=== PATIENT | female | born 1970 | race Caucasian/White ===

== ENCOUNTER 2016-07-14 16:16 | Emergency (ER) | payer OTHER ==
--- NOTE | ~2016-07-14 | EKG ---
PATIENT: AVIVA MURO UNIT #: [id number] Ventricular Rate: 74 BPM Atrial Rate: 74 BPM P-R Interval: 122 ms QRS Duration: 82 ms Q-T Interval: 424 ms QTC Calculation(Bezet): 470 ms P [place]: 4 degrees Calculated R [place]: 52 degrees Calculated T [place]: 21 degrees Diagnosis Line: Normal sinus rhythm Diagnosis Line: Normal ECG Diagnosis Line: When compared with ECG of 25-JUL-2013 09:20, Diagnosis Line: No significant change was found Diagnosis Line: Confirmed by ANGEL CHAVEZ MD ([id number]) on Diagnosis Line: 07/15/2016 7:16:25 AM INTERPRETING LOREN HORTON
--- NOTE | ~2016-07-14 | CT71 ---
[facility] A Service of [facility] & [facility] RADIOLOGY TEXT RESULTS PATIENT: AVIVA MURO LOCATION: [facility] : [birth year] UNIT #: [id number] AGE: [address]: Kailash Cardona MD SEX: F ORDER DR: [id number] [facility] [address] [place], [place] [address] [id number] MR#: [id number] Acc #: [id number] NAME: AVIVA MURO : 1970 SEX: F STUDY DATE/TIME: 07/14/2016 16:18 UNIT: [facility] ROOM: STUDY DESCRIPTION: CT Head Wo Contrast Attending Physician: Kailash Cardona M.D. Ordering Physician: Kailash Cardona M.D. Primary Care Physician: Hien Klein MEDICAL IMAGING REPORT This report is preliminary unless electronic signature is present EXAM CT brain without contrast HISTORY Left side face numbness today. TECHNIQUE Axial noncontrast images were obtained from the skull base to the vertex. This CT exam was performed with one or more of the following radiation dose reduction techniques: Automatic exposure control, adjustment of mA and/or kV according to patient size, and iterative reconstruction. FINDINGS Ventricular size and configuration are normal. There is no evidence of acute infarct or hemorrhage. There are no extraaxial fluid collections. No mass lesion or mass effect is seen. There are no skull fractures. IMPRESSION Normal noncontrast head CT. Dictated by... Álvaro Camargo M.D. THIS IS AN ELECTRONICALLY VERIFIED REPORT Álvaro Camargo M.D. at 07/14/2016 10:50 PM DFL/psc TD: 07/14/2016 18:46 JOB #: [id number] MEDICAL IMAGING REPORT [facility] A Service of [facility] & [facility] RADIOLOGY TEXT RESULTS PATIENT: AVIVA MURO LOCATION: [facility] : 66 UNIT #: [id number] AGE: [address]: Kailash Cardona MD SEX: F ORDER DR: Page 1 of 1 COPY
--- NOTE | ~2016-07-14 | CR72 ---
[facility] A Service of [facility] & [facility] RADIOLOGY TEXT RESULTS PATIENT: AVIVA MURO LOCATION: [facility] : [birth year] UNIT #: [id number] AGE: [address]: Kailash Cardona MD SEX: F ORDER DR: [id number] [facility] [address] [place], [place] [address] [id number] MR#: [id number] Acc #: [id number] NAME: AIVVA MURO : 1970 SEX: F STUDY DATE/TIME: 07/14/2016 16:02 UNIT: [facility] ROOM: STUDY DESCRIPTION: CR Chest Single View Portable Attending Physician: Kailash Cardona M.D. Ordering Physician: Kailash Cardona M.D. Primary Care Physician: Hien Klein MEDICAL IMAGING REPORT This report is preliminary unless electronic signature is present EXAM Portable chest HISTORY Numbness face and hands since yesterday. COMPARISON 07/25/2013 FINDINGS Portable view of the chest demonstrates no acute cardiopulmonary disease. Heart and mediastinum unremarkable. Several old left-sided rib fractures. No pneumothorax. Dictated by... Agus Ott M.D. THIS IS AN ELECTRONICALLY VERIFIED REPORT Agus Ott M.D. at 07/15/2016 1:06 PM TIMA/radha TD: 07/14/2016 18:42 JOB #: [id number] MEDICAL IMAGING REPORT Page 1 of 1 COPY
[2016-07-14 16:07] LABS: BASOPHIL# 0.1 X10e3 (0-0.3); EOSINOPHIL# 0.1 X10e3 (0-0.7); EOSINOPHIL% 1.2 % (0.0-7.0); HEMATOCRIT 37.3 % (35.0-45.0); HEMOGLOBIN 12.5 gm/dL (12.0-16.0); LYMPHOCYTE# 2.5 X10e3 (1.0-3.5); MEAN CELL VOLUME 96.3 FL (83-96); MEAN CORPUSCULAR HEMOGLOBIN 32.2 PG (28-34); MEAN CORPUSCULAR HGB CONC 33.4 g/dL (30-36); MEAN PLATELET VOLUME 7.4 FL (6.5-11.5); MONOCYTE% 13.6 % (3.0-12.0); NEUTROPHIL# 3.9 X10e3 (1.5-7.1); NEUTROPHIL% 51.2 % (40-75); PLATELET COUNT 248 X10e3 (140-420); RED BLOOD COUNT 3.87 X10e (3.90-5.30); RED CELL DISTRIBUTION WIDTH 13.4 % (11.0-15.5); WHITE BLOOD COUNT 7.6 X10e3 (4.0-10.5)
[2016-07-14 16:08] LABS: DIFF IND NO
[~2016-07-14 16:16] MED LIST: DESYREL50 M1 DOB; LISINOPRIL10 MG PO; NAPROSYN500 MG PO; PRILOSEC20 M1 PO; PROZAC10 M1 PO; SINGULAIR; SINGULAIR PO; SYMBICORT; SYMBICORT INH; ZESTORETIC 20/21 TAB PO
[2016-07-14 16:20] LABS: PARTIAL THROMBOPLASTIN TIME 22.3 SECONDS (23.5-31.3)
[2016-07-14 16:28] LABS: POC - CKMB <1.0 ng/mL (0.0-7.9); POC - TROPONIN <0.05 ng/mL (<=0.05)
[2016-07-14 16:35] LABS: ALBUMIN SERUM 3.4 g/dL (3.5-5.0); ALKALINE PHOSPHATASE 75 U/L (32-92); ALT (SGPT) 27 U/L (10-40); AST (SGOT) 41 U/L (10-42); BILIRUBIN, DIRECT 0.1 mg/dL (0.0-0.2); BILIRUBIN,INDIRECT 0.5 mg/dL (0.0-0.9); BILIRUBIN,TOTAL 0.6 mg/dL (0.2-2.0); BLOOD UREA NITROGEN 17 mg/dL (9-23); CARBON DIOXIDE 27 mmol/L (22-31); CHLORIDE 98 mmol/L (100-111); CREATININE SERUM 0.5 mg/dL (0.6-1.4); GLOM FILT RATE Estimated 115.3 mL/min (>60); GLUCOSE FASTING 99 mg/dL (70-110); MAGNESIUM 1.1 mg/dL (1.6-3.0); POTASSIUM 3.1 mmol/L (3.5-5.1); PROTEIN TOTAL SERUM 6.3 g/dL (6.0-8.3); SODIUM 137 mmol/L (135-145)
[2016-07-14 16:36] LABS: ALCOHOL BLOOD <5 mg/dL (0)
[2016-07-14 17:17] LABS: URINE SOURCE CLEAN CATCH
[2016-07-14 17:22] LABS: URINE APPEARANCE CLEAR; URINE BILIRUBIN NEG (NEG); URINE BLOOD NEG (NEG); URINE COLOR YELLOW; URINE GLUCOSE NEG (NEG); URINE KETONE NEG (NEG); URINE LEUKOCYTE ESTERASE NEG (NEG); URINE NITRATE NEG (NEG); URINE PH 7.5 (5-8); URINE PROTEIN NEG (NEG); URINE UROBILINOGEN 0.2 MG/DL (NEG)
[2016-07-14 17:26] LABS: CULTURE INDICATED? NO
[2016-07-14 17:32] LABS: AMPHETAMINE NEG (NEG); BARBITURATES NEG (NEG); BENZODIAZEPINES NEG (NEG); COCAINE NEG (NEG); MARIJUANA NEG (NEG); OPIATES NEG (NEG); TRICYCLIC ANTIDEPRESSANTS NEG (NEG); U METHADONE NEG (NEG)
[2016-07-14 17:53] LABS: POC - CKMB <1.0 ng/mL (0.0-7.9); POC - TROPONIN <0.05 ng/mL (<=0.05)
[2016-07-14] MEDS ORDERED: SINGULAIR PO (19:16)
[2016-07-14] MEDS ORDERED: ZANTAC150 M1 PO (19:16)
[2016-07-14] MEDS ORDERED: PROZAC40 MG PO (19:16)
[2016-07-14] MEDS ORDERED: ZESTORETIC 20-1 EAC1 PO (19:17)
== END 2016-07-14 20:22 | disposition home or self-care (01) ==
LOC: CED 16:16
PROVIDERS: Emergency Medicine
DX: E87.6 Hypokalemia (principal); E83.42 Hypomagnesemia; I10 Essential (primary) hypertension
CPT/HCPCS: 36415; 70450; 71010; 80048; 80076; 80307; 81003; 82553; 82947; 83735; 84484; 84703; 85025; 85610; 85730; 93005; 96361; 96365; 96367; 96368; 99284; G0480; J3411; J3475

== ENCOUNTER 2016-09-12 18:25 | Inpatient (IN) | payer OTHER ==
--- NOTE | ~2016-09-12 | PN ---
Unit #: [id number] #: [id number] Patient: AVIVA UMRO [id number] [facility] [address] [place] [address] [id number] I MR#: [id number] NAME: AVIVA MURO ROOM: P202 Age: 45 Sex: F Admission Date: 09/12/2016 : 1970 Attending Physician: Juan Pablo Brown M.D. Admitting Physician: Juan Pablo Brown M.D. Primary Care Physician: Primary Care Physician Britany SANTIAGO NOTES DATE OF SERVICE: 09/15/2016 SUBJECTIVE Upon today's assessment, the patient reports she is doing better than yesterday. She has no complaints of signs and symptoms of physical withdrawal at this time. She said her primary issue at this time is elevated levels of anxiety and and I still observe some fine tremors in the bilateral upper extremities, although there is improvement. She reports that she has been taking her p.r.n. trazodone for insomnia and that she is sleeping well. At this time, her plan is to continue with detox protocol and discharge down to our intensive outpatient program. Dictated by... Rima Pérez APRN for Gabriela Cooney/cody TD: 09/17/2016 07:49 JOB #: [id number] JOSR SANTIAGO NOTES Page 1 of 1 X RIMA PÉREZ PROGRESS NOTE
--- NOTE | ~2016-09-12 | PN ---
Unit #: [id number] #: [id number] Patient: MARIELA MURO [id number] [facility] [address] [place] [address] [id number] I MR#: [id number] NAME: MARIELA MURO ROOM: P202 Age: 46 Sex: F Admission Date: 09/12/2016 : 1970 Attending Physician: Juan Pablo Brown M.D. Admitting Physician: Juan Pablo Brown M.D. Primary Care Physician: Primary Care Physician Britany SANTIAGO NOTES DATE OF SERVICE 09/16/2016 DISCUSSION Mariela continues to have active detox symptoms today. She is mildly agitated on the unit and appears anxious and little upset. She is alert and fully oriented with no evidence of psychosis. ASSESSMENT Alcohol dependence. PLAN Continue current treatment plan Dictated by... Juan Pablo Brown M.D. ROHIT/daniel TD: 09/21/2016 23:25 JOB #: [id number] JOSR PROGRESS NOTES Page 1 of 1 X Juan Pablo Brown MD PROGRESS NOTE
--- NOTE | ~2016-09-12 | HP ---
Unit #: [id number] #: [id number] Patient: MARIELA MURO [id number] [place] [address] [id number] I MR#: [id number] NAME: MARIELA MURO. ROOM: P202 Age: 45 Sex: F Admission Date: 09/12/2016 : 1970 Attending Physician: Juan Pablo Brown M.D. Admitting Physician: Juan Pablo Brown M.D. Primary Care Physician: Primary Care Physician No HISTORY AND PHYSICAL HISTORY OF PRESENT ILLNESS Mariela is a 45-year-old female admitted on 09/12/[address] [place] [address] for detox from alcohol. PAST MEDICAL HISTORY 1. Hypertension. 2. Asthma. 3. GERD. PAST SURGICAL HISTORY 1. Gastric bypass. 2. Appendectomy. ALLERGIES No known drug allergies. SOCIAL HISTORY Denies tobacco or illegal drug use. Does report drinking a fifth of alcohol daily. She is currently and living with her . FAMILY HISTORY Noncontributory. REVIEW OF SYSTEMS CONSTITUTIONAL: No fever or chills. HEENT: Denies any sore throat, ear pain or runny nose. CARDIOVASCULAR: Denies chest pain, irregular heart rhythm or palpitations. CHEST: Denies shortness of breath or cough. No hemoptysis. GASTROINTESTINAL: Denies nausea, vomiting, diarrhea or chronic constipation. ENDOCRINE: Denies history of increased thirst or urination. No recent significant weight loss or gain. GENITOURINARY: Denies dysuria, frequency, or hematuria. SKIN: Denies any rashes. HEMATOLOGIC: Denies history of increased bleeding or bruising. MUSCULOSKELETAL: Denies any hot, swollen joints. No generalized muscle pain. NEUROLOGIC: Denies problems with vision or speech. No frequent, severe headaches. No numbness, tingling or weakness in any extremities. Denies loss of bladder or bowel control. CURRENT MEDICATIONS 1. Fluoxetine. Unit #: [id number] #: [id number] Patient: MARIELA MURO 2. Lisinopril/HCTZ. 3. Ranitidine. 4. Montelukast. PHYSICAL EXAMINATION GENERAL: Alert, oriented, in no acute distress. VITAL SIGNS: Blood pressure 163/111, heart rate 77, respirations 18, temperature 98.5. HEIGHT: 5 feet 5. WEIGHT: 165 pounds. SKIN: Warm and dry without rash or lesion. HEENT: Normocephalic. TMs not viewed. Oral and nasal passages clear. Conjunctivae clear. PERRLA. EOMs intact. NECK: Supple without lymphadenopathy or thyromegaly. HEART: Regular rate and rhythm without murmur. LUNGS: Clear. ABDOMEN: Soft, nontender, without masses or hepatosplenomegaly. : Not done. EXTREMITIES: No evidence of cyanosis, clubbing or edema. Moves all without focal deficit. NEUROLOGICAL: Grossly within normal limits. Cranial Nerves: II: Visual soto are intact. III, IV AND : Extraocular movements are intact. Pupils are equal, round and reactive to light. V: Facial sensation is grossly normal. VII: Facial movements and expression are normal. VIII: Auditory acuity grossly intact. IX, X: Uvula is midline. Phonation is normal. XI: Patient shrugs shoulders and turns head normally. XII: Tongue protrudes in the midline. Sensory and Motor Function: Sensory and motor sensation is grossly normal. Motor: moves all extremities well. Coordination: Gait is normal. Deep Tendon Reflexes: Intact. IMPRESSION 1. Psychiatric admission. 2. Hypertension. 3. Asthma. 4. Gastroesophageal reflux disease. RECOMMENDATIONS PSYCHIATRIC: Per psychiatrist. MEDICAL: No contraindications to participate in facility's activities. MEDICAL PROGNOSIS Good. MEDICAL CONDITION Stable. Dictated by... Gardenia Sepulveda/irena TD: 09/13/2016 15:52 Unit #: [id number] #: [id number] Patient: MARIELA MURO JOB #: [id number] HISTORY AND PHYSICAL Page 1 of 1 X BRENDA PANDYA APRN HISTORY AND PHYSICAL
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
--- NOTE | ~2016-09-12 | PN ---
Unit #: [id number] #: [id number] Patient: AVIVA MURO [id number] [place] [address] [id number] I MR#: [id number] NAME: AVIVA MURO ROOM: P202 Age: 45 Sex: F Admission Date: 09/12/2016 : 1970 Attending Physician: Juan Pablo Brown M.D. Admitting Physician: Juan Pablo Brown M.D. Primary Care Physician: Primary Care Physician Britany OVALLES PROGRESS NOTES DATE September 14, [address] Juan Pablo Brown at [facility] DISCUSSION Upon today's assessment, the patient reports "I am okay." She still reports some fine tremors in the bilateral extremities, but overall, she reports that she is doing better with reduced signs and symptoms of physical withdrawal at this time. She reports that postdischarge she is looking into wanting to get the Vivitrol injection to control her craving for alcohol. PLAN Continue detox protocol and current medications. Dictated by... ALLISON Chou TD: 09/17/2016 10:47 JOB #: [id number] [facility] PROGRESS NOTES Page 1 of 1 X JENNIFER PÉREZ PROGRESS NOTE
--- NOTE | ~2016-09-12 | DS ---
Unit #: [id number] #: [id number] Patient: AVIVA MURO [id number] [place] [address] [id number] I MR#: [id number] NAME: AVIVA MURO ROOM: P202 Age: 46 Sex: F Admission Date: 09/12/2016 : 1970 Discharge Date: 09/17/2016 Attending Physician: Juan Pablo Brown M.D. Primary Care Physician: Primary Care Physician No DISCHARGE SUMMARY REASON FOR ADMISSION Aviva is a 45-year-old woman, who reports that she drinks daily after work. This has caused increasing difficulty with her anxiety and depression, and she had no suicidal ideation, intent, or plan. She was admitted for alcohol detox. DIAGNOSTIC STUDIES LABORATORY RESULTS: Please see hospital chart. HOSPITAL COURSE Aviva was admitted and placed on the alcohol detox protocol. Her home medications were continued unchanged. She had generally [id number] detox symptomatology, but expressed significant anxiety. She worried a great deal about her , whom she reports also drinks and this makes it difficult for her to establish sobriety. She had no suicidal ideation, intent, or plan on the date of discharge and was discharged to the community in stable condition. DISCHARGE DIAGNOSES AXIS I: Alcohol dependence with withdrawal, uncomplicated and major depressive disorder. AXIS II: No diagnosis. AXIS III: Hypertension, history of asthma, and history of gastroesophageal reflux disease. AXIS IV: AXIS V: DISCHARGE INSTRUCTIONS Follow up with CD-IOP at this facility. DISCHARGE MEDICATIONS All medications were referred to primary care physician. The patient was to continue on Prozac 40 mg daily for depression, Zestril 40 mg daily for hypertension, hydrochlorothiazide 25 mg daily for hypertension, Pepcid 20 mg b.i.d. for GERD, Singulair 10 mg daily for allergies, and Proventil inhaler 2 puffs every 4 hours as needed for shortness of air. CONDITION AT DISCHARGE Improved. Unit #: [id number] #: [id number] Patient: AVIVA MURO PROGNOSIS Good. DIET AND ACTIVITY Per primary care doctor. Dictated by... Juan Pablo Brown M.D. [facility]/cody TD: 10/04/2016 12:23 JOB #: [id number] DISCHARGE SUMMARY Page 1 of 1 X Juan Pablo Brown MD DISCHARGE SUMMARY
[~2016-09-12 18:25] MED LIST changes: +PROZAC40 MG PO; +ZANTAC150 M1 PO; +ZESTORETIC 20-1 EAC1 PO
[2016-09-15 12:15] LABS: BASOPHIL# 0.1 X10e3 (0-0.3); BASOPHIL% 1.2 % (0-2.5); EOSINOPHIL# 0.2 X10e3 (0-0.7); EOSINOPHIL% 3.2 % (0.0-7.0); HEMATOCRIT 40.3 % (35.0-45.0); HEMOGLOBIN 12.7 gm/dL (12.0-16.0); LYMPHOCYTE# 2.1 X10e3 (1.0-3.5); MEAN CELL VOLUME 103.2 FL (83-96); MEAN CORPUSCULAR HEMOGLOBIN 32.5 PG (28-34); MEAN CORPUSCULAR HGB CONC 31.4 g/dL (30-36); MEAN PLATELET VOLUME 8.7 FL (6.5-11.5); MONOCYTE# 0.7 X10e3 (0-1.0); MONOCYTE% 13.4 % (3.0-12.0); NEUTROPHIL# 2.5 X10e3 (1.5-7.1); NEUTROPHIL% 44.2 % (40-75); PLATELET COUNT 230 X10e3 (140-420); RED CELL DISTRIBUTION WIDTH 14.5 % (11.0-15.5); WHITE BLOOD COUNT 5.6 X10e3 (4.0-10.5)
[2016-09-15 12:16] LABS: DIFF IND NO
[2016-09-15 12:55] LABS: ALBUMIN SERUM 3.5 g/dL (3.5-5.0); BILIRUBIN,TOTAL 0.3 mg/dL (0.2-2.0); CALCIUM SERUM 8.6 mg/dL (8.4-10.2); CREATININE SERUM 0.5 mg/dL (0.6-1.4); GLOM FILT RATE Estimated 115.3 mL/min (>60); PROTEIN TOTAL SERUM 6.3 g/dL (6.0-8.3)
== END 2016-09-17 13:08 | disposition home or self-care (01) | DRG 897 ==
LOC: EDUNIT# → P2S 21:14
PROVIDERS: Psychiatry & Neurology Psychiatry
PROC: HZ2ZZZZ Detoxification Services for Substance Abuse Treatment (ICD-10-PCS; principal; 2016-09-12)
DX: F10.239 Alcohol dependence with withdrawal, unspecified (principal); I10 Essential (primary) hypertension; J45.909 Unspecified asthma, uncomplicated; K21.9 Gastro-esophageal reflux disease without esophagitis; Z98.84 Bariatric surgery status
CPT/HCPCS: 80053; 85025

== ENCOUNTER 2016-09-25 11:00 | Inpatient (IN) | payer OTHER ==
--- NOTE | ~2016-09-25 | PN ---
Unit #: [id number] #: [id number] Patient: AVIVA MURO [id number] [facility] [address] [place] [address] [id number] MR#: [id number] NAME: AVIVA MURO ROOM: [facility] Age: 46 Sex: F Admission Date: 09/25/2016 : 1970 Attending Physician: Juan Pablo Brown M.D. Admitting Physician: Juan Pablo Brown M.D. Primary Care Physician: Primary Care Physician Britany SANTIAGO NOTES DATE September 28, [address] Juan Pablo Brown DISCUSSION This patient was seen and evaluated on September 28, 2016. She is requesting orange juice with her meals as she cannot tolerate milk or other juices. She also has requested double portions as she is feeling increased hunger. Her sleep and appetite are reportedly good. She continues taking Prozac for her depressive symptoms. She denies any SI or HI and contracts for safety. She continues inpatient hospitalization for stabilization and medication management. She is pleasant during interaction and social among her peers. Dictated by... Gardenia Beckwith/chris TD: 10/01/2016 09:10 JOB #: [id number] JOSR PROGRESS NOTES Page 1 of 1 X Nadine Henry PROGRESS NOTE
--- NOTE | ~2016-09-25 | HP ---
Unit #: [id number] #: [id number] Patient: MARIELA MURO [id number] [place] [address] [id number] I MR#: [id number] NAME: MARIELA MURO ROOM: [facility] Age: 46 Sex: F Admission Date: 09/25/2016 : 1970 Attending Physician: Juan Pablo Brown M.D. Admitting Physician: Juan Pablo Brown M.D. Primary Care Physician: Primary Care Physician No HISTORY AND PHYSICAL HISTORY OF PRESENT ILLNESS Mariela is a 46 year old, [facility] because of her continued abuse of alcohol. The patient was seen and history and physical, dated 09/13/16 was reviewed. This is current. No changes. Please see history and physical, dated 09/13/16. Dictated by... Yissel Dalal P.A.-C. for Gabriela Esteban/chris TD: 09/26/2016 11:27 JOB #: [id number] HISTORY AND PHYSICAL Page 1 of 1 X Yissel Dalal HISTORY AND PHYSICAL
[2016-09-27 10:40] LABS: AMPHETAMINE POS (NEG); BARBITURATES NEG (NEG); BENZODIAZEPINES POS (NEG); COCAINE NEG (NEG); MARIJUANA NEG (NEG); OPIATES NEG (NEG); TRICYCLIC ANTIDEPRESSANTS NEG (NEG); U METHADONE NEG (NEG)
== END 2016-09-30 12:08 | DRG 897 ==
LOC: P1E
PROVIDERS: Psychiatry & Neurology Psychiatry
DX: F10.230 Alcohol dependence with withdrawal, uncomplicated (principal); I10 Essential (primary) hypertension; F32.9 Major depressive disorder, single episode, unspecified; J45.909 Unspecified asthma, uncomplicated; K21.9 Gastro-esophageal reflux disease without esophagitis
CPT/HCPCS: 80307; 86592; J2550